=== PATIENT | male | born 1965 | race Two or more races ===

== ENCOUNTER 2017-04-06 12:27 | Emergency (ER) | payer OTHER, SELFPAY ==
[~2017-04-06] VITALS: Ht 162.6 cm; Wt 57.4 kg
[2017-04-06 12:35] VITALS: BP 161/108
[2017-04-06] MEDS ORDERED: LIDOCAINE 1%, 10ML ONE ×2 (13:12→13:58)
[2017-04-06] MEDS ORDERED: DIPH,PERTUSS(ACELL),TET VAC/PF 0.5 ML IM-VACC ONE ×3 (13:12→14:22)
[2017-04-06] MEDS ORDERED: HYDROcodone/APAP 5/325 TABLET ONE (13:12)
[2017-04-06] MEDS ORDERED: LIDOCAINE 1%, 20ML SQ ONE (13:30)
[2017-04-06] MEDS ORDERED: HYDROcodone/APAP 5/325 TABLET PO ONE (13:30)
[2017-04-06] MEDS ORDERED: CEFAZOLIN 1,000 MG ONE (14:22)
[2017-04-06] MEDS ORDERED: CEFAZOLIN 1,000 MG IM ONE (14:30)
== END 2017-04-06 14:39 | disposition home or self-care (01) ==
LOC: MERGE 14:32 → ED 14:32
DX: S61.012A Laceration without foreign body of left thumb without damage to nail, initial encounter (principal); W20.8XXA Other cause of strike by thrown, projected or falling object, initial encounter; Y93.89 Activity, other specified; Y99.8 Other external cause status; Y92.009 Unspecified place in unspecified non-institutional (private) residence as the place of occurrence of the external cause
CPT/HCPCS: 12002; 73130; 90471; 90715; 96372; 99284; J0690

== ENCOUNTER 2017-04-07 21:23 | Emergency (ER) | payer OTHER ==
[~2017-04-07] VITALS: Ht 162.6 cm; Wt 58.4 kg
[2017-04-07 21:39] VITALS: BP 109/70
== END 2017-04-07 23:43 | disposition home or self-care (01) ==
LOC: ED 23:25
DX: S61.011D Laceration without foreign body of right thumb without damage to nail, subsequent encounter (principal); X58.XXXD Exposure to other specified factors, subsequent encounter
CPT/HCPCS: 99281